=== PATIENT | female | born 1955 | race Caucasian/White ===

== ENCOUNTER 2022-07-06 09:12 | Outpatient (REF) | payer MEDICARE, SELFPAY ==
--- NOTE | ~2022-07-06 | XR_ITS ---
EXAMINATION: XR FOOT, LEFT CLINICAL INFORMATION: Injury COMPARISON: None TECHNIQUE: AP, lateral, and oblique views of the left foot. XR/XR foot LT min 3V FINDINGS/IMPRESSION: There is a tuft fracture of the distal phalanx of the second toe. No other fractures are seen. The exam is otherwise unremarkable.
== END 2022-07-06 09:13 | disposition home or self-care (01) ==
LOC: HO.HMGCX 09:12
PROVIDERS: PCP Internal Medicine; Visit Provider Physician Assistant Medical
DX: T14.90XA Injury, unspecified, initial encounter (principal); S92.912A Unspecified fracture of left toe(s), initial encounter for closed fracture
CPT/HCPCS: 73630

== ENCOUNTER 2024-01-17 08:22 | Outpatient (REF) | payer MEDICARE, SELFPAY ==
[2024-01-17 11:10] LABS: Cholesterol 249 mg/dL (<200); HDL Cholesterol 49 mg/dL (>40); LDL Cholesterol Calculated 174 mg/dL (<100); Triglycerides 133 mg/dL (<150)
[2024-01-17 11:21] LABS: Thyroid Stimulating Hormone 5.63 uIU/mL (0.32-4.0)
== END 2024-01-17 08:23 | disposition home or self-care (01) ==
LOC: HO.HMGCLDS 08:22
PROVIDERS: Referring Provider Physician Assistant Medical; Visit Provider Internal Medicine
DX: E04.1 Nontoxic single thyroid nodule (principal); E78.2 Mixed hyperlipidemia; Z72.0 Tobacco use
CPT/HCPCS: 36415; 80061; 84443

== ENCOUNTER 2024-04-12 09:17 | Outpatient (REF) | payer MEDICARE, SELFPAY ==
[2024-04-14 13:03] LABS: Lyme Abs Screen <0.90 index
== END 2024-04-12 09:18 | disposition home or self-care (01) ==
LOC: HO.HMGCLDS 09:17
PROVIDERS: Visit Provider Nurse Practitioner
DX: T14.8XXA Other injury of unspecified body region, initial encounter (principal); W57.XXXA Bitten or stung by nonvenomous insect and other nonvenomous arthropods, initial encounter
CPT/HCPCS: 36415; 86617; 86618; 86666; 86753